=== PATIENT | male | born 1985 | race Caucasian/White ===

== ENCOUNTER 2018-12-03 22:19 | Emergency (ER) | payer MEDICAID ==
[~2018-12-03] VITALS: Ht 170.2 cm; Wt 66.7 kg
[2018-12-03 22:40] VITALS: BP 118/75
[2018-12-03] MEDS ORDERED: METH4TAB81 PO (23:50)
== END 2018-12-03 23:59 | disposition home or self-care (01) ==
LOC: ER 22:20
DX: S29.012A Strain of muscle and tendon of back wall of thorax, initial encounter (principal); Z79.899 Other long term (current) drug therapy; X58.XXXA Exposure to other specified factors, initial encounter; Y93.89 Activity, other specified; Y92.89 Other specified places as the place of occurrence of the external cause; Y99.8 Other external cause status
CPT/HCPCS: 99283

== ENCOUNTER 2019-02-03 21:15 | Emergency (ER) | payer MEDICAID ==
[~2019-02-03] VITALS: Ht 172.7 cm; Wt 62.9 kg
[~2019-02-03 21:15] MED LIST: MECL-111 PO; METH4TAB81 PO
--- NOTE | 2019-02-03 22:57 | NUR ---
PT EXPRESSING FUSTRATION THAT IT HAS BEEN "OVER AN HOUR AND HE HASN'T BEEN SEEN" - PT WAS SEEN BY PA IN TRIAGE AND THEN PLACED IN A ROOM. APPOLOGIZED TO PT THAT THE WAIT HAS BEEN SO LONG. ADVISED HIM WE HAVE HAD 2 BACK TO BACK INTUBATIONS AND SEVERAL OTHER CRITICAL PTS.
--- NOTE | 2019-02-03 23:00 | NUR ---
PATIENT STATES THAT HE IS GOING TO DIFFERENT [facility] FOR HIS BACK PAIN AND HAS HAD XRAYS, ETC. PATIENT STATES THAT THIS STARTED 6 MONTHS AGO FROM A MASSAGE "WITH ELBOWS". PATIENT STATES THAT AT TIMES WHEN HE HAS TO URINATE, HE DOES NOT MAKE IT TO THE BATHROOM AND "PEES ON HIMSELF"; PA AWARE. PATIENT ENCOURAGED TO ONLY SEE HIS PMD AT [facility] IN ORDER FOR 1 PERSON TO EVALUATE HIS 'SUBTLE" CHANGES IN HIS CONDITION. PATIENT STATED THAT HE COULD NOT WALK BUT I HAD HIM GET OOB AND WALK 1 LAP AROUND THE ER: NO COMPLAINT OF INCREASED PAIN OR NUMBNESS: PATIENT SHUFFLED SLIGHTLY BUT WAS VERY STEADY ON HIS FEET. PRIOR TO GETTING OOB, PATIENT STATED THAT "NO ONE IS TAKING ME SERIOUSLY. LOOK, MY FEET ARE SWOLLEN, MY VEINS ARE POPPING OUT." I PALPATED HIS FEET: NO EDEMA NOTED, STRONG AND REGULAR BILATERAL PEDAL PULSES. HIS VEINS ON HIS FEET APPEARED WNL.
[2019-02-03] MEDS ORDERED: ketorolac tromethamine 15mg/ml inj. IM ONE (23:55)
--- NOTE | 2019-02-03 23:55 | NUR ---
SPOKE TO SHERRY MEDELLIN REGARDING PATIENT, VERBAL ORDERS RECEIVED, WOULD LIKE BLADDER SCAN, NO UA OREDERED
[2019-02-04] MEDS ORDERED: PRED20TA PO (00:38)
[2019-02-04] MEDS ORDERED: orphenadrine citrate 60mg/2ml inj. IM ONE (00:40)
[2019-02-04 00:47] VITALS: BP 155/77
== END 2019-02-04 00:47 | disposition home or self-care (01) ==
LOC: ER 21:16
DX: G89.29 Other chronic pain (principal); M54.6 Pain in thoracic spine; R32 Unspecified urinary incontinence; R39.15 Urgency of urination; Z79.899 Other long term (current) drug therapy
CPT/HCPCS: 96372; 99284; J1885; J2360

== ENCOUNTER 2022-10-21 09:32 | Emergency (ER) | payer MEDICAID ==
[~2022-10-21] VITALS: Ht 172.7 cm; Wt 68.0 kg
[~2022-10-21 09:32] MED LIST changes: -MECL-111 PO; +MECL-159 PO
[2022-10-21 09:54] VITALS: BP 106/64
[2022-10-21] MEDS ORDERED: proparacaine 0.5% ophthalmic drops 15ml EACHEYE ONE (11:15)
[2022-10-21] MEDS ORDERED: ciprofloxacin 0.3% 2.5ml ophthalmic solution RIGHTEYE ONE (11:25)
[2022-10-21] MEDS ORDERED: ciprofloxacin 0.3% 2.5ml ophthalmic solution RIGHTEYE SCH (11:30)
== END 2022-10-21 11:52 | disposition home or self-care (01) ==
LOC: ER 09:32
DX: H10.9 Unspecified conjunctivitis (principal); G89.29 Other chronic pain; M54.50 Low back pain, unspecified
CPT/HCPCS: 99283

== ENCOUNTER 2022-11-26 10:08 | Emergency (ER) | payer MEDICAID ==
[~2022-11-26] VITALS: Ht 172.7 cm; Wt 65.0 kg
[2022-11-26 10:14] VITALS: BP 105/66
== END 2022-11-26 10:57 | disposition home or self-care (01) ==
LOC: ER 10:09
DX: S01.01XD Laceration without foreign body of scalp, subsequent encounter (principal); G89.29 Other chronic pain; M54.9 Dorsalgia, unspecified; Z48.00 Encounter for change or removal of nonsurgical wound dressing; X58.XXXD Exposure to other specified factors, subsequent encounter
CPT/HCPCS: 99281